=== PATIENT | female | born 1940 | race Asian ===

== ENCOUNTER 2016-12-01 13:22 | Outpatient (CLI) | payer OTHER ==
[~2016-12-01 13:22] MED LIST: LEVO0.117 PO; LOTREL1 CA4 PO; ZOCOR80 MG OR
[2016-12-01 13:51] LABS: PLATELET COUNT 164 K/uL (152-353)
[2016-12-01 14:20] LABS: POTASSIUM 4.4 mmol/L (3.6-5.2)
== END 2016-12-01 14:30 | disposition home or self-care (01) ==
LOC: LABW 13:22
PROVIDERS: Nurse Practitioner Family
DX: I25.10 Atherosclerotic heart disease of native coronary artery without angina pectoris (principal); I10 Essential (primary) hypertension; E78.4 Other hyperlipidemia; E03.8 Other specified hypothyroidism; E55.9 Vitamin D deficiency, unspecified; Z79.899 Other long term (current) drug therapy; Z51.81 Encounter for therapeutic drug level monitoring
CPT/HCPCS: 80053; 80061; 82306; 82607; 83036; 84439; 84443; 85027

== ENCOUNTER 2017-05-27 13:19 | Outpatient (CLI) | payer OTHER ==
[2017-05-27 15:03] LABS: PLATELET COUNT 159 K/uL (152-353)
[2017-05-27 16:06] LABS: POTASSIUM 3.8 mmol/L (3.6-5.2)
== END 2017-05-27 19:09 | disposition home or self-care (01) ==
LOC: LAB 13:19
PROVIDERS: Nurse Practitioner Family
DX: E78.4 Other hyperlipidemia (principal); E03.8 Other specified hypothyroidism; I25.10 Atherosclerotic heart disease of native coronary artery without angina pectoris; I10 Essential (primary) hypertension; R73.09 Other abnormal glucose
CPT/HCPCS: 80053; 80061; 82306; 82607; 83036; 84439; 84443; 85027

== ENCOUNTER 2017-10-08 10:39 | Outpatient (CLI) | payer OTHER | END 2017-10-08 19:05 | disposition home or self-care (01) | LOC: MAMMO 10:39 | DX: Z12.31 Encounter for screening mammogram for malignant neoplasm of breast (principal); Z13.820 Encounter for screening for osteoporosis; M85.88 Other specified disorders of bone density and structure, other site ==

== ENCOUNTER 2017-12-08 14:49 | Outpatient (CLI) | payer OTHER ==
[2017-12-08 15:16] LABS: PLATELET COUNT 156 K/uL (152-353)
[2017-12-08 16:03] LABS: POTASSIUM 4.2 mmol/L (3.6-5.2)
== END 2017-12-08 23:24 | disposition home or self-care (01) ==
LOC: LAB 14:49
PROVIDERS: Nurse Practitioner Family
DX: E78.4 Other hyperlipidemia (principal); E03.8 Other specified hypothyroidism; I10 Essential (primary) hypertension; I25.10 Atherosclerotic heart disease of native coronary artery without angina pectoris; Z79.899 Other long term (current) drug therapy; Z51.81 Encounter for therapeutic drug level monitoring
CPT/HCPCS: 80053; 80061; 83036; 84436; 84443; 85027

== ENCOUNTER 2018-02-24 13:41 | Outpatient (CLI) | payer OTHER ==
[2018-02-24 14:12] LABS: PLATELET COUNT 171 K/uL (152-353)
[2018-02-24 14:37] LABS: POTASSIUM 3.8 mmol/L (3.6-5.2)
== END 2018-02-24 21:21 | disposition home or self-care (01) ==
LOC: LAB 13:41
PROVIDERS: Nurse Practitioner Family
DX: E78.5 Hyperlipidemia, unspecified (principal); E03.9 Hypothyroidism, unspecified; I10 Essential (primary) hypertension; Z00.00 Encounter for general adult medical examination without abnormal findings; I25.10 Atherosclerotic heart disease of native coronary artery without angina pectoris; R73.9 Hyperglycemia, unspecified
CPT/HCPCS: 80053; 80061; 83036; 84436; 84443; 85027

== ENCOUNTER 2019-05-25 08:10 | Outpatient (CLI) | payer OTHER | END 2019-05-25 19:49 | disposition home or self-care (01) | LOC: MAMMO 08:10 | DX: Z12.31 Encounter for screening mammogram for malignant neoplasm of breast (principal) ==

== ENCOUNTER 2019-08-02 13:04 | Emergency (ER) | payer OTHER ==
[~2019-08-02] VITALS: Ht 167.6 cm; Wt 62.6 kg
[2019-08-02 13:20] VITALS: TEMP 98.1
[2019-08-02 14:08] LABS: POTASSIUM 3.5 mmol/L (3.6-5.2)
[2019-08-02 14:36] LABS: PLATELET COUNT 207 K/uL (152-353)
[2019-08-02 14:52] VITALS: BP 171/98
== END 2019-08-02 15:57 | disposition home or self-care (01) ==
LOC: ED 13:04
PROVIDERS: Emergency Medicine
DX: I10 Essential (primary) hypertension (principal)
CPT/HCPCS: 80053; 85027; 93005; 99283

== ENCOUNTER 2019-08-09 10:22 | Outpatient (CLI) | payer OTHER ==
[2019-08-09 11:03] LABS: POTASSIUM 3.5 mmol/L (3.6-5.2)
== END 2019-08-09 20:23 | disposition home or self-care (01) ==
LOC: LABW 10:22
PROVIDERS: Internal Medicine Cardiovascular Disease
DX: I25.10 Atherosclerotic heart disease of native coronary artery without angina pectoris (principal)
CPT/HCPCS: 36415; 80048

== ENCOUNTER 2019-08-16 10:13 | Day surgery (SDC) | payer OTHER | END 2019-08-17 15:35 | disposition home or self-care (01) | LOC: OR 10:13 | PROC: 0DJD8ZZ Inspection of Lower Intestinal Tract, Via Natural or Artificial Opening Endoscopic (ICD-10-PCS; principal; 2019-08-16) | DX: K64.8 Other hemorrhoids (principal); Z12.11 Encounter for screening for malignant neoplasm of colon | CPT/HCPCS: G0121 ==

== ENCOUNTER 2021-02-24 09:53 | Outpatient (CLI) | payer OTHER ==
[2021-02-24 10:52] LABS: POTASSIUM 3.9 mmol/L (3.6-5.2)
[2021-02-24 11:11] LABS: PLATELET COUNT 154 K/uL (152-353)
== END 2021-02-24 19:09 | disposition home or self-care (01) ==
LOC: LABW 09:53
PROVIDERS: ATTEND Internal Medicine
DX: N18.4 Chronic kidney disease, stage 4 (severe) (principal)
CPT/HCPCS: 36415; 80053; 81000; 82306; 82330; 82570; 83735; 83970; 84100; 84155; 85027

== ENCOUNTER 2021-05-02 10:46 | Outpatient (CLI) | payer OTHER | END 2021-05-02 19:25 | disposition home or self-care (01) | LOC: RAD 10:46 | PROVIDERS: ATTEND Nurse Practitioner Family | DX: Z00.8 Encounter for other general examination (principal); Z13.31 Encounter for screening for depression; Z71.82 Exercise counseling; Z12.31 Encounter for screening mammogram for malignant neoplasm of breast; Z13.820 Encounter for screening for osteoporosis; N95.8 Other specified menopausal and perimenopausal disorders ==

== ENCOUNTER 2022-05-27 09:07 | Outpatient (CLI) | payer OTHER | END 2022-05-27 23:57 | disposition home or self-care (01) | LOC: MAMMO 09:07 | PROVIDERS: ATTEND Nurse Practitioner Family | DX: Z12.31 Encounter for screening mammogram for malignant neoplasm of breast (principal) ==